=== PATIENT | female | born 1930 | race Caucasian/White ===

== ENCOUNTER → 2016-07-26 | Outpatient (CLI) | payer MEDICARE, OTHER ==
[~2016-07-26] VITALS: Ht 154.9 cm; Wt 56.0 kg
[~2016-07-26] MED LIST: AMLO-512 PO; APIX2.5T PO; ATOR20TA86 PO; CLAR250T3 PO; DICY20 PO; DIGO125T PO; ESOM20CA31 PO; ESOM40CA54 PO; FEXO-58 PO; LOSA-30 PO; LOSA1TAB37 PO; LOSA1TAB40 PO; MECL-111 PO; PANT40TA25 PO; VITAD1000 PO
[2016-07-26 09:52] VITALS: BP 115/69
== END | disposition home or self-care (01) ==
LOC: SRCNTR 09:48
PROVIDERS: ATTEND Internal Medicine Cardiovascular Disease
DX: J44.9 Chronic obstructive pulmonary disease, unspecified (principal); I10 Essential (primary) hypertension; E78.5 Hyperlipidemia, unspecified; I48.2 Chronic atrial fibrillation
CPT/HCPCS: G0463

== ENCOUNTER → 2016-08-05 | Outpatient (CLI) | payer MEDICARE, OTHER ==
[~2016-08-05] VITALS: Ht 157.5 cm; Wt 56.5 kg
[~2016-08-05] MED LIST changes: -CLAR250T3 PO; -ESOM20CA31 PO
[2016-08-05 14:00] VITALS: BP 140/79
== END | disposition home or self-care (01) ==
LOC: SRCNTR 12:34
PROVIDERS: ATTEND Internal Medicine Critical Care Medicine
DX: J44.9 Chronic obstructive pulmonary disease, unspecified (principal); C34.90 Malignant neoplasm of unspecified part of unspecified bronchus or lung; E78.2 Mixed hyperlipidemia; I10 Essential (primary) hypertension; G47.33 Obstructive sleep apnea (adult) (pediatric)
CPT/HCPCS: G0463

== ENCOUNTER → 2016-08-09 | Outpatient (CLI) | payer MEDICARE, OTHER | END | disposition home or self-care (01) | LOC: RADMN 13:01 | PROVIDERS: ATTEND Internal Medicine Critical Care Medicine | DX: J42 Unspecified chronic bronchitis (principal); J43.2 Centrilobular emphysema; I25.10 Atherosclerotic heart disease of native coronary artery without angina pectoris; I70.0 Atherosclerosis of aorta; I51.7 Cardiomegaly; I28.8 Other diseases of pulmonary vessels; Z90.2 Acquired absence of lung [part of] | CPT/HCPCS: 71250 ==

== ENCOUNTER 2016-08-30 15:00 | Emergency (ER) | payer MEDICARE, OTHER ==
[~2016-08-30] VITALS: Ht 157.5 cm; Wt 61.4 kg
[~2016-08-30 15:00] MED LIST changes: -ESOM40CA54 PO; -FEXO-58 PO; -LOSA-30 PO; -LOSA1TAB37 PO
[2016-08-30 15:53] LABS: EOSINOPHILS % (AUTO) 1.8 % (1.0-6.0); HEMATOCRIT 41.5 % (36-46); HEMOGLOBIN 13.4 g/dL (12.0-16.0); LYMPHOCYTES # (AUTO) 1.8 K/uL (1.0-4.8); LYMPHOCYTES % (AUTO) 20.1 % (22.0-44.0); MEAN CORPUSCULAR HEMOGLOBIN 29.8 pg (26.0-34.0); MEAN CORPUSCULAR HGB CONC 32.2 G/dL (31.0-37.0); MEAN CORPUSCULAR VOLUME 92 fL (80-100); MONOCYTES # (AUTO) 0.8 K/uL (0.1-1.0); MONOCYTES % (AUTO) 8.7 % (2.0-9.0); NEUTROPHILS # (AUTO) 6.1 K/uL (1.8-7.7); NEUTROPHILS % (AUTO) 68.4 % (40.0-70.0); PLATELET COUNT (AUTO) 219 K/uL (150-450); RED CELL DISTRIBUTION WIDTH 13.5 % (11.5-14.5)
[2016-08-30 16:01] LABS: ANION GAP 1 mmol/L (8-16); CALCIUM, TOTAL 8.9 mg/dL (8.8-10.5); CARBON DIOXIDE 35 mmol/L (22-29); CHLORIDE 102 mmol/L (98-107); CREATININE 0.67 mg/dL (0.60-1.30); GLOMERULAR FILTR. RATE CALC > 60 mL/min (>60); POTASSIUM 3.7 mmol/L (3.5-5.1); SODIUM SERUM 138 mmol/L (136-145); UREA NITROGEN, BLOOD 23 mg/dL (7-18)
[2016-08-30 16:13] LABS: APPEARANCE,URINE CLEAR (CLEAR); GLUCOSE, URINE (UA) NEGATIVE (NEGATIVE); KETONES,URINE NEGATIVE (NEGATIVE); LEUKOCYTE ESTERASE ,URINE NEGATIVE (NEGATIVE); OCCULT BLOOD,URINE TRACE (NEGATIVE); PROTEIN,URINE NEGATIVE (NEGATIVE)
[2016-08-30 16:14] LABS: ADD UA MICROSCOPIC YES
[2016-08-30 16:22] LABS: B-TYPE NATRIURETIC PEPTIDE 173 pg/mL (0-100)
[2016-08-30 16:26] LABS: ALANINE AMINOTRANSFERASE 25 U/L (12-78); ALBUMIN 3.7 g/dL (3.4-5.0); ASPARTATE AMINOTRANSFERASE 21 U/L (15-37); BILIRUBIN,TOTAL 0.4 mg/dL (0.1-1.0); CREATINE KINASE MB 1.5 ng/mL (0-5); CREATINE KINASE, TOTAL 155 U/L (26-192); DIGOXIN 0.68 ng/mL (0.90-2.00); TOTAL PROTEIN, SERUM 7.2 g/dL (6.4-8.2)
[2016-08-30 16:29] LABS: SQUAMOUS EPITHELIAL CELL,UR Rare /LPF (None Seen)
[2016-08-30 16:30] LABS: RBC,URINE 0-2 /HPF (0-2); WBC,URINE 0-2 /HPF (0-5)
[2016-08-30 16:39] LABS: INR 1.1 (0.9-1.1); PROTHROMBIN TIME 11.5 SEC (9.4-11.6)
[2016-08-30 17:35] VITALS: BP 155/70
[2016-09-01] MEDS ORDERED: LOSA1TAB37 PO (11:14)
[2016-11-01] MEDS ORDERED: ESOM40CA54 PO (10:41)
[2016-11-01] MEDS ORDERED: FEXO-58 PO (10:41)
[2016-11-01] MEDS ORDERED: LOSA-30 PO (10:41)
== END 2016-08-30 18:27 | disposition home or self-care (01) ==
LOC: EMS 15:01
DX: I48.91 Unspecified atrial fibrillation (principal); J44.9 Chronic obstructive pulmonary disease, unspecified; E78.00 Pure hypercholesterolemia, unspecified; I10 Essential (primary) hypertension; Z87.891 Personal history of nicotine dependence; Z88.6 Allergy status to analgesic agent; Z88.5 Allergy status to narcotic agent; Z88.0 Allergy status to penicillin; Z88.8 Allergy status to other drugs, medicaments and biological substances
CPT/HCPCS: 93005; 99285

== ENCOUNTER → 2016-09-01 | Outpatient (CLI) | payer MEDICARE, OTHER ==
[~2016-09-01] VITALS: Ht 157.5 cm; Wt 57.0 kg
[~2016-09-01] MED LIST changes: +ESOM40CA54 PO; +FEXO-58 PO; +LOSA-30 PO; +LOSA1TAB37 PO
[2016-09-01 11:11] VITALS: BP 123/47
== END | disposition home or self-care (01) ==
LOC: SRCNTR 10:31
PROVIDERS: ATTEND Internal Medicine Cardiovascular Disease
DX: J44.9 Chronic obstructive pulmonary disease, unspecified (principal); I10 Essential (primary) hypertension; I48.2 Chronic atrial fibrillation; E78.5 Hyperlipidemia, unspecified
CPT/HCPCS: G0463

== ENCOUNTER → 2016-09-06 | Outpatient (CLI) | payer MEDICARE, OTHER ==
[~2016-09-06] VITALS: Ht 157.5 cm; Wt 57.0 kg
[~2016-09-06] MED LIST changes: -LOSA1TAB40 PO
[2016-09-06 12:53] VITALS: BP 108/64
== END | disposition home or self-care (01) ==
LOC: SRCNTR 12:33
PROVIDERS: ATTEND Internal Medicine Critical Care Medicine
DX: I10 Essential (primary) hypertension (principal); J44.9 Chronic obstructive pulmonary disease, unspecified; G47.33 Obstructive sleep apnea (adult) (pediatric); C34.90 Malignant neoplasm of unspecified part of unspecified bronchus or lung; E78.2 Mixed hyperlipidemia
CPT/HCPCS: G0463

== ENCOUNTER → 2016-09-13 | Outpatient (CLI) | payer MEDICARE, OTHER | END | disposition home or self-care (01) | LOC: RADPV 07:25 | PROVIDERS: ATTEND Internal Medicine Cardiovascular Disease | DX: I50.1 Left ventricular failure, unspecified (principal); I51.7 Cardiomegaly; I48.91 Unspecified atrial fibrillation; I35.8 Other nonrheumatic aortic valve disorders; I35.1 Nonrheumatic aortic (valve) insufficiency; I70.8 Atherosclerosis of other arteries; I07.1 Rheumatic tricuspid insufficiency; I27.2 Other secondary pulmonary hypertension; I37.1 Nonrheumatic pulmonary valve insufficiency | CPT/HCPCS: 93306 ==

== ENCOUNTER → 2016-11-01 | Outpatient (CLI) | payer MEDICARE, OTHER ==
[~2016-11-01] VITALS: Ht 157.5 cm; Wt 57.6 kg
[2016-11-01 10:30] VITALS: BP 121/74
== END | disposition home or self-care (01) ==
LOC: SRCNTR 10:15
PROVIDERS: ATTEND Internal Medicine Cardiovascular Disease
DX: J44.9 Chronic obstructive pulmonary disease, unspecified (principal); I10 Essential (primary) hypertension; I48.2 Chronic atrial fibrillation; E78.5 Hyperlipidemia, unspecified; R10.13 Epigastric pain; B96.81 Helicobacter pylori [H. pylori] as the cause of diseases classified elsewhere
CPT/HCPCS: G0463

== ENCOUNTER → 2016-11-15 | Outpatient (CLI) | payer MEDICARE, OTHER ==
[~2016-11-15] VITALS: Ht 157.5 cm; Wt 57.4 kg
[~2016-11-15] MED LIST changes: -LOSA1TAB37 PO; -MECL-111 PO; -PANT40TA25 PO
[2016-11-15 10:50] VITALS: BP 132/65
== END | disposition home or self-care (01) ==
LOC: SRCNTR 10:20
PROVIDERS: ATTEND Internal Medicine Critical Care Medicine
DX: J44.9 Chronic obstructive pulmonary disease, unspecified (principal); I10 Essential (primary) hypertension; G47.33 Obstructive sleep apnea (adult) (pediatric); C34.90 Malignant neoplasm of unspecified part of unspecified bronchus or lung; E78.2 Mixed hyperlipidemia; Z90.2 Acquired absence of lung [part of]; Z87.891 Personal history of nicotine dependence; Z85.118 Personal history of other malignant neoplasm of bronchus and lung
CPT/HCPCS: G0463

== ENCOUNTER → 2016-11-29 | Outpatient (CLI) | payer MEDICARE, OTHER | END | disposition home or self-care (01) | LOC: RADMN 09:27 | PROVIDERS: ATTEND Internal Medicine Critical Care Medicine | DX: J43.2 Centrilobular emphysema (principal); J42 Unspecified chronic bronchitis; I70.0 Atherosclerosis of aorta; I25.10 Atherosclerotic heart disease of native coronary artery without angina pectoris; R91.8 Other nonspecific abnormal finding of lung field; I51.7 Cardiomegaly; I77.89 Other specified disorders of arteries and arterioles; Z90.2 Acquired absence of lung [part of] | CPT/HCPCS: 71250 ==

== ENCOUNTER → 2016-12-22 | Outpatient (CLI) | payer MEDICARE, OTHER ==
[~2016-12-22] VITALS: Ht 157.5 cm; Wt 57.0 kg
[2016-12-22 11:11] VITALS: BP 118/74
== END | disposition home or self-care (01) ==
LOC: SRCNTR 10:50
PROVIDERS: ATTEND Internal Medicine Critical Care Medicine
DX: J44.9 Chronic obstructive pulmonary disease, unspecified (principal); G47.33 Obstructive sleep apnea (adult) (pediatric); E78.2 Mixed hyperlipidemia; I10 Essential (primary) hypertension; C34.90 Malignant neoplasm of unspecified part of unspecified bronchus or lung; Z87.891 Personal history of nicotine dependence
CPT/HCPCS: G0463

== ENCOUNTER → 2016-12-31 | Outpatient (CLI) | payer MEDICARE, OTHER ==
[~2016-12-31] VITALS: Ht 157.5 cm; Wt 58.2 kg
[~2016-12-31] MED LIST changes: +ALEN70TA48 PO; +ALPR0.255 PO; +AMIO200 PO; +AMLO-511 PO; +ASPI-1093 PO; +ASPI-825 PO; +ATOR10TA84 PO; +ATOR40TA28 PO; +CALC1TAB15 PO; +CITA10TA68 PO; +CLAR250T3 PO; +DSS100 PO; +ESOM20CA31 PO; +FERR-89 PO; +FERR324T4 PO; +FEXO-117 PO; +HYDR25TA PO; +LEVO500 PO; +LISI-660 PO; +LISI10TA PO; +LORA10TA7 PO; +LORA1TAB3 PO; +LOSA1TAB37 PO; +LOSA1TAB40 PO; +MECL-111 PO; +MULT-1203; +NIAC500T76 PO; +PANT40TA25 PO; +PERCT PO; +RIVA20TA PO; +SIMV-260 PO; +SOLI5 PO; +TEMA7.5C17 PO; +VENL37.589 PO; +VICOT PO; +ZOLP5 PO; +[UNRECOGNIZED DRUG - CODE] PO
[2016-12-31 09:53] VITALS: BP 119/55
== END | disposition home or self-care (01) ==
LOC: SRCNTR 09:50
PROVIDERS: ATTEND Internal Medicine Cardiovascular Disease
DX: I10 Essential (primary) hypertension (principal); E78.5 Hyperlipidemia, unspecified; I48.2 Chronic atrial fibrillation; J44.9 Chronic obstructive pulmonary disease, unspecified; Z79.01 Long term (current) use of anticoagulants; Z88.0 Allergy status to penicillin
CPT/HCPCS: G0463

== ENCOUNTER 2017-01-31 17:20 | Inpatient (IN) | payer MEDICARE, OTHER ==
[~2017-01-31] VITALS: Ht 157.5 cm; Wt 63.5 kg
[~2017-01-31 17:20] MED LIST changes: -ALEN70TA48 PO; -ALPR0.255 PO; -AMIO200 PO; -AMLO-511 PO; -ASPI-1093 PO; -ASPI-825 PO; -ATOR10TA84 PO; -ATOR40TA28 PO; -CALC1TAB15 PO; -CITA10TA68 PO; -CLAR250T3 PO; -DSS100 PO; -ESOM20CA31 PO; -FERR-89 PO; -FERR324T4 PO; -FEXO-117 PO; -HYDR25TA PO; -LEVO500 PO; -LISI-660 PO; -LISI10TA PO; -LORA10TA7 PO; -LORA1TAB3 PO; -LOSA1TAB37 PO; -LOSA1TAB40 PO; -MECL-111 PO; -MULT-1203; -NIAC500T76 PO; -PANT40TA25 PO; -PERCT PO; -RIVA20TA PO; -SIMV-260 PO; -SOLI5 PO; -TEMA7.5C17 PO; -VENL37.589 PO; -VICOT PO; -ZOLP5 PO; -[UNRECOGNIZED DRUG - CODE] PO
[2017-01-31 18:14] LABS: BASOPHILS % (AUTO) 0.6 % (0.0-2.0); EOSINOPHILS % (AUTO) 0.8 % (1.0-6.0); HEMATOCRIT 40.4 % (36-46); HEMOGLOBIN 13.5 g/dL (12.0-16.0); LYMPHOCYTES # (AUTO) 1.3 K/uL (1.0-4.8); LYMPHOCYTES % (AUTO) 12.8 % (22.0-44.0); MEAN CORPUSCULAR HEMOGLOBIN 29.8 pg (26.0-34.0); MEAN CORPUSCULAR HGB CONC 33.4 G/dL (31.0-37.0); MEAN CORPUSCULAR VOLUME 89 fL (80-100); MONOCYTES # (AUTO) 0.8 K/uL (0.1-1.0); MONOCYTES % (AUTO) 7.6 % (2.0-9.0); NEUTROPHILS # (AUTO) 8.1 K/uL (1.8-7.7); NEUTROPHILS % (AUTO) 78.2 % (40.0-70.0); PLATELET COUNT (AUTO) 214 K/uL (150-450); RED BLOOD CELL COUNT(AUTO) 4.52 MIL/uL (4.00-5.20); RED CELL DISTRIBUTION WIDTH 13.4 % (11.5-14.5); WHITE BLOOD COUNT (AUTO) 10.4 K/uL (4.5-11.0)
[2017-01-31 18:30] LABS: ANION GAP 7 mmol/L (8-16); CALCIUM, TOTAL 9.4 mg/dL (8.8-10.5); CARBON DIOXIDE 33 mmol/L (22-29); CHLORIDE 100 mmol/L (98-107); CREATININE 0.85 mg/dL (0.60-1.30); GLOMERULAR FILTR. RATE CALC > 60 mL/min (>60); POTASSIUM 3.8 mmol/L (3.5-5.1); SODIUM SERUM 140 mmol/L (136-145); UREA NITROGEN, BLOOD 17 mg/dL (7-18)
[2017-01-31 18:34] LABS: ALANINE AMINOTRANSFERASE 54 U/L (12-78); ALBUMIN 4.1 g/dL (3.4-5.0); ASPARTATE AMINOTRANSFERASE 59 U/L (15-37); BILIRUBIN,TOTAL 0.6 mg/dL (0.1-1.0); TOTAL PROTEIN, SERUM 7.8 g/dL (6.4-8.2)
[2017-01-31 19:53] LABS: PROTHROMBIN TIME 10.9 SEC (9.4-11.6)
[2017-01-31 20:05] LABS: APPEARANCE,URINE CLEAR (CLEAR); GLUCOSE, URINE (UA) NEGATIVE (NEGATIVE); KETONES,URINE NEGATIVE (NEGATIVE); LEUKOCYTE ESTERASE ,URINE NEGATIVE (NEGATIVE); OCCULT BLOOD,URINE NEGATIVE (NEGATIVE); PH,URINE 6.5 (5.0-8.0); PROTEIN,URINE NEGATIVE (NEGATIVE)
[2017-01-31 20:06] LABS: ADD UA MICROSCOPIC NO
[2017-01-31] MEDS ORDERED: HYDROmorphone 2 MG/ML SYRINGE IVP ONE (20:30)
[2017-01-31] MEDS ORDERED: KETOROLAC TROMETHAMINE 30 MG/ML VIAL IVP ONE (20:30)
[2017-01-31] MEDS ORDERED: ONDANSETRON HCL 4 MG/2 ML VIAL IVP ONE (20:30)
[2017-01-31] MEDS ORDERED: SODIUM CHLORIDE 0.9% 1,000 ML IV ONE (20:30)
[2017-02-01 04:31] LABS: BASOPHILS # (AUTO) 0.02 K/uL (0.00-0.20); BASOPHILS % (AUTO) 0.2 % (0.0-2.0); EOSINOPHILS % (AUTO) 1.11 % (1.0-6.0); HEMATOCRIT 39.4 % (36-46); HEMOGLOBIN 12.8 g/dL (12.0-16.0); LYMPHOCYTES # (AUTO) 1.1 K/uL (1.0-4.8); LYMPHOCYTES % (AUTO) 12.1 % (22.0-44.0); MEAN CORPUSCULAR HGB CONC 32.4 G/dL (31.0-37.0); MEAN CORPUSCULAR VOLUME 92 fL (80-100); MONOCYTES # (AUTO) 0.7 K/uL (0.1-1.0); MONOCYTES % (AUTO) 7.7 % (2.0-9.0); NEUTROPHILS # (AUTO) 6.9 K/uL (1.8-7.7); NEUTROPHILS % (AUTO) 78.9 % (40.0-70.0); PLATELET COUNT (AUTO) 187 K/uL (150-450); RED BLOOD CELL COUNT(AUTO) 4.26 MIL/uL (4.00-5.20); RED CELL DISTRIBUTION WIDTH 13.3 % (11.5-14.5); WHITE BLOOD COUNT (AUTO) 8.8 K/uL (4.5-11.0)
[2017-02-01 04:40] LABS: ANION GAP 6 mmol/L (8-16); CALCIUM, TOTAL 9.2 mg/dL (8.8-10.5); CARBON DIOXIDE 33 mmol/L (22-29); CHLORIDE 103 mmol/L (98-107); CREATININE 0.71 mg/dL (0.60-1.30); GLOMERULAR FILTR. RATE CALC > 60 mL/min (>60); POTASSIUM 3.9 mmol/L (3.5-5.1); SODIUM SERUM 142 mmol/L (136-145); UREA NITROGEN, BLOOD 11 mg/dL (7-18)
[2017-02-01 04:47] LABS: ALANINE AMINOTRANSFERASE 89 U/L (12-78); ALBUMIN 3.5 g/dL (3.4-5.0); ASPARTATE AMINOTRANSFERASE 76 U/L (15-37); BILIRUBIN,TOTAL 0.7 mg/dL (0.1-1.0); TOTAL PROTEIN, SERUM 6.9 g/dL (6.4-8.2)
[2017-02-01] MEDS ORDERED: LEVOFLOXACIN 500 MG/D5% WATER 100 ML IV ONE (07:15)
[2017-02-01] MEDS ORDERED: MetroNIDAZOLE 500 MG/NACL 100 ML IV ONE (07:15)
[2017-02-01] MEDS ORDERED: GADOBUTROL 1 MMOL/ML 10 ML VIAL IVP ONE (07:57)
[2017-02-01] MEDS: MetroNIDAZOLE 500 MG/NACL 100 ML IV SCH ×2 (13:38→20:36)
[2017-02-01] MEDS ORDERED: SODIUM CHLORIDE 0.9% 100 ML ONE (14:02)
[2017-02-01 14:06] LABS: DIGOXIN 0.74 ng/mL (0.90-2.00)
[2017-02-01 14:30] VITALS: BP 145/76
[2017-02-01 16:38] VITALS: BP 135/73
[2017-02-01 19:40] VITALS: BP 120/68
[2017-02-01] MEDS: DOCUSATE SODIUM 100 MG CAPSULE PO SCH (20:33)
[2017-02-01 23:45] VITALS: BP 137/64
[2017-02-02 03:59] VITALS: BP 142/65
[2017-02-02] MEDS: MetroNIDAZOLE 500 MG/NACL 100 ML IV SCH ×3 (05:32→20:40)
[2017-02-02] MEDS: LEVOFLOXACIN 500 MG/D5% WATER 100 ML IV SCH (06:36)
[2017-02-02 07:05] VITALS: BP 122/43
[2017-02-02] MEDS: DOCUSATE SODIUM 100 MG CAPSULE PO SCH ×2 (08:20→20:39)
[2017-02-02] MEDS: PANTOPRAZOLE SODIUM 40 MG DR TABLET PO SCH (08:20)
[2017-02-02] MEDS ORDERED: DIGOXIN 125 MCG TABLET PO SCH (09:00)
[2017-02-02 11:26] VITALS: BP 127/63
[2017-02-02 15:37] VITALS: BP 135/62
[2017-02-02] MEDS ORDERED: POLYETHYLENE GLYCOL 3350 17 GM PACKET PO ONE (16:15)
[2017-02-02 19:18] VITALS: BP 146/80
[2017-02-02] MEDS ORDERED: SODIUM CHLORIDE 0.9% 100 ML ONE (20:44)
[2017-02-02 23:56] VITALS: BP 143/72
[2017-02-03] MEDS ORDERED: LIDOCAINE HCL/PF 2% 5 ML VIAL IM ONE (00:17)
[2017-02-03] MEDS ORDERED: FentaNYL CITRATE-PF 100 MCG/2 ML VIAL IVP ONE (00:17)
[2017-02-03] MEDS ORDERED: ROCURONIUM BROMIDE 10 MG/ML 5 ML VIAL IVP ONE (00:17)
[2017-02-03] MEDS ORDERED: DEXAMETHASONE SOD PHOS 4 MG/ML VIAL IVP ONE (00:17)
[2017-02-03] MEDS ORDERED: EPHEDrine SULFATE 50 MG/ML VIAL IM ONE (00:17)
[2017-02-03] MEDS ORDERED: GLYCOPYRROLATE 0.2 MG/ML VIAL IM ONE (00:17)
[2017-02-03] MEDS ORDERED: NEOSTIGMINE METHYLSULFATE 1 MG/ML 10 ML VIAL IVP ONE (00:17)
[2017-02-03] MEDS ORDERED: PROPOFOL 1% 20 ML VIAL IVP ONE (00:17)
[2017-02-03] MEDS ORDERED: SUCCINYLCHOLINE CHLORIDE 20 MG/ML 10 ML VIAL IVP ONE (00:17)
[2017-02-03] MEDS ORDERED: 0.9% SODIUM CHLORIDE 10 ML VIAL IVP ONE (00:17)
[2017-02-03 04:38] VITALS: BP 137/67
[2017-02-03] MEDS: MetroNIDAZOLE 500 MG/NACL 100 ML IV SCH ×3 (05:05→20:23)
[2017-02-03] MEDS: LEVOFLOXACIN 500 MG/D5% WATER 100 ML IV SCH (06:31)
[2017-02-03 07:39] VITALS: BP 147/85
[2017-02-03] MEDS: PANTOPRAZOLE SODIUM 40 MG DR TABLET PO SCH (08:31)
[2017-02-03] MEDS: DOCUSATE SODIUM 100 MG CAPSULE PO SCH ×2 (08:31→20:23)
[2017-02-03] MEDS ORDERED: RINGERS SOLUTION,LACTATED 1,000 ML IV ONE ×2 (11:20→12:00)
[2017-02-03 11:31] VITALS: BP 150/68
[2017-02-03] MEDS ORDERED: SODIUM CHLORIDE 0.9% 1,000 ML IV ONE (12:00)
[2017-02-03] MEDS ORDERED: IOHEXOL 240 MG/ML 20 ML VIAL ONE (12:25)
[2017-02-03] MEDS ORDERED: SODIUM CL IRRIG SOLN BAG 3,000 ML IRRIG ONE (12:26)
[2017-02-03] MEDS ORDERED: FentaNYL CITRATE-PF 100 MCG/2 ML VIAL IVP PRN (12:45)
[2017-02-03] MEDS ORDERED: MEPERIDINE-PF 25 MG/ML SYRINGE IVP PRN (12:45)
[2017-02-03] MEDS: BUPIVACAINE 0.25%/EPI 1:200,000/PF 10 ML VIAL ONE ×2 (13:00→13:29)
[2017-02-03] MEDS ORDERED: HYDROmorphone 2 MG/ML SYRINGE ONE (14:23)
[2017-02-03] MEDS ORDERED: MEPERIDINE-PF 25 MG/ML SYRINGE ONE (14:23)
[2017-02-03] MEDS: HYDROmorphone 2 MG/ML SYRINGE IVP PRN ×2 (14:23→14:33)
[2017-02-03] MEDS ORDERED: ONDANSETRON HCL 4 MG/2 ML VIAL IVP STA (14:31)
[2017-02-03] MEDS ORDERED: ONDANSETRON HCL 4 MG/2 ML VIAL ONE (14:32)
[2017-02-03 15:34] VITALS: BP 156/93
[2017-02-03] MEDS: ONDANSETRON HCL 4 MG/2 ML VIAL IVP PRN (18:02)
[2017-02-03 20:08] VITALS: BP 142/84
[2017-02-03] MEDS: HYDROCODONE/ACETAMINOPHEN 5-325 MG TABLET PO PRN (20:23)
[2017-02-03] MEDS: OXYGEN THERAPY IH SCH (20:24)
[2017-02-03] MEDS: ACETAMINOPHEN 325 MG TABLET PO PRN (22:04)
[2017-02-04] VITALS (7 sets, daily range): BP systolic 111–163; BP diastolic 58–94
[2017-02-04] MEDS: HYDROCODONE/ACETAMINOPHEN 5-325 MG TABLET PO PRN ×3 (02:04→19:44)
[2017-02-04] MEDS: ONDANSETRON HCL 4 MG/2 ML VIAL IVP PRN (03:53)
[2017-02-04] MEDS: MetroNIDAZOLE 500 MG/NACL 100 ML IV SCH ×3 (05:41→20:38)
[2017-02-04 06:04] LABS: BASOPHILS % (AUTO) 0.2 % (0.0-2.0); EOSINOPHILS % (AUTO) 0 % (1.0-6.0); HEMOGLOBIN 14.2 g/dL (12.0-16.0); LYMPHOCYTES # (AUTO) 0.5 K/uL (1.0-4.8); LYMPHOCYTES % (AUTO) 2.3 % (22.0-44.0); MEAN CORPUSCULAR VOLUME 91 fL (80-100); MONOCYTES # (AUTO) 1.3 K/uL (0.1-1.0); NEUTROPHILS # (AUTO) 19.5 K/uL (1.8-7.7); PLATELET COUNT (AUTO) 241 K/uL (150-450); RED BLOOD CELL COUNT(AUTO) 4.73 MIL/uL (4.00-5.20); WHITE BLOOD COUNT (AUTO) 21.3 K/uL (4.5-11.0)
[2017-02-04 06:22] LABS: BILIRUBIN,TOTAL 0.8 mg/dL (0.1-1.0); CALCIUM, TOTAL 9.8 mg/dL (8.8-10.5); CREATININE 1.04 mg/dL (0.60-1.30); POTASSIUM 4.3 mmol/L (3.5-5.1); TOTAL PROTEIN, SERUM 7.9 g/dL (6.4-8.2)
[2017-02-04 06:45] LABS: NEUTROPHILS % (AUTO) 91.5 % (40.0-70.0); RBC MORPHOLOGY COMMENT NORMAL RBC MORPH
[2017-02-04] MEDS: PANTOPRAZOLE SODIUM 40 MG DR TABLET PO SCH (07:36)
[2017-02-04] MEDS: LEVOFLOXACIN 500 MG/D5% WATER 100 ML IV SCH (07:36)
[2017-02-04] MEDS: DOCUSATE SODIUM 100 MG CAPSULE PO SCH ×2 (07:36→20:28)
[2017-02-04] MEDS: HYDROmorphone 2 MG/ML SYRINGE IVP PRN (07:37)
[2017-02-04] MEDS: OXYGEN THERAPY IH SCH ×2 (07:38→19:46)
[2017-02-04] MEDS: AmLODIPine BESYLATE 5 MG TABLET PO SCH ×2 (14:23→20:38)
[2017-02-05] MEDS: MetroNIDAZOLE 500 MG/NACL 100 ML IV SCH ×3 (05:07→22:06)
[2017-02-05] MEDS: MAGNESIUM HYDROXIDE SUSPENSION 30 ML UDCUP PO PRN ×2 (05:08→22:06)
[2017-02-05 05:19] VITALS: BP 155/89
[2017-02-05 07:28] LABS: BASOPHILS % (AUTO) 0.4 % (0.0-2.0); EOSINOPHILS # (AUTO) 0.01 K/uL (0.00-0.70); EOSINOPHILS % (AUTO) 0.04 % (1.0-6.0); HEMATOCRIT 43.3 % (36-46); LYMPHOCYTES # (AUTO) 0.7 K/uL (1.0-4.8); LYMPHOCYTES % (AUTO) 2.8 % (22.0-44.0); MEAN CORPUSCULAR HEMOGLOBIN 29.8 pg (26.0-34.0); MEAN CORPUSCULAR HGB CONC 32.3 G/dL (31.0-37.0); MEAN CORPUSCULAR VOLUME 92 fL (80-100); MONOCYTES # (AUTO) 0.7 K/uL (0.1-1.0); NEUTROPHILS # (AUTO) 22.9 K/uL (1.8-7.7); PLATELET COUNT (AUTO) 217 K/uL (150-450); RED CELL DISTRIBUTION WIDTH 13.6 % (11.5-14.5); WHITE BLOOD COUNT (AUTO) 24.4 K/uL (4.5-11.0)
[2017-02-05 07:29] VITALS: BP 137/77
[2017-02-05 07:38] LABS: NEUTROPHILS % (AUTO) 93.8 % (40.0-70.0)
[2017-02-05] MEDS: LEVOFLOXACIN 500 MG/D5% WATER 100 ML IV SCH (07:57)
[2017-02-05 07:59] LABS: ALANINE AMINOTRANSFERASE 54 U/L (12-78); ALBUMIN 3.4 g/dL (3.4-5.0); ANION GAP 10 mmol/L (8-16); ASPARTATE AMINOTRANSFERASE 40 U/L (15-37); BILIRUBIN,TOTAL 1.5 mg/dL (0.1-1.0); CALCIUM, TOTAL 9.5 mg/dL (8.8-10.5); CARBON DIOXIDE 26 mmol/L (22-29); CHLORIDE 99 mmol/L (98-107); CREATININE 0.71 mg/dL (0.60-1.30); GLOMERULAR FILTR. RATE CALC > 60 mL/min (>60); POTASSIUM 3.9 mmol/L (3.5-5.1); SODIUM SERUM 135 mmol/L (136-145); TOTAL PROTEIN, SERUM 7.1 g/dL (6.4-8.2); UREA NITROGEN, BLOOD 18 mg/dL (7-18)
[2017-02-05] MEDS: OXYGEN THERAPY IH SCH ×2 (08:00→20:20)
[2017-02-05] MEDS: AmLODIPine BESYLATE 5 MG TABLET PO SCH (08:18)
[2017-02-05] MEDS: PANTOPRAZOLE SODIUM 40 MG DR TABLET PO SCH (08:18)
[2017-02-05] MEDS: DOCUSATE SODIUM 100 MG CAPSULE PO SCH ×2 (08:19→20:16)
[2017-02-05] MEDS: APIXABAN 2.5 MG TABLET PO SCH ×2 (09:25→20:16)
[2017-02-05] MEDS: SODIUM PHOS/SODIUM BIPHOS 133 ML ENEMA PR PRN (10:32)
[2017-02-05 12:04] VITALS: BP 127/70
[2017-02-05 16:28] VITALS: BP 140/96
[2017-02-05] MEDS ORDERED: MAGNESIUM CITRATE 300 ML ORAL SOLUTION PO PRN (16:45)
[2017-02-05 19:44] VITALS: BP 143/89
[2017-02-05] MEDS: ACETAMINOPHEN 325 MG TABLET PO PRN (20:17)
[2017-02-05] MEDS ORDERED: AmLODIPine BESYLATE 10 MG TABLET PO SCH (21:00)
[2017-02-05 23:52] VITALS: BP 139/81
[2017-02-06] MEDS: HYDROmorphone 2 MG/ML SYRINGE IVP PRN (01:03)
[2017-02-06] MEDS: MetroNIDAZOLE 500 MG/NACL 100 ML IV SCH ×3 (04:24→20:30)
[2017-02-06 05:24] VITALS: BP 158/78
[2017-02-06] MEDS: LEVOFLOXACIN 500 MG/D5% WATER 100 ML IV SCH (06:48)
[2017-02-06 07:08] LABS: BASOPHILS % (AUTO) 0.1 % (0.0-2.0); EOSINOPHILS % (AUTO) 0 % (1.0-6.0); HEMOGLOBIN 14.4 g/dL (12.0-16.0); LYMPHOCYTES # (AUTO) 0.8 K/uL (1.0-4.8); LYMPHOCYTES % (AUTO) 3.3 % (22.0-44.0); MEAN CORPUSCULAR HEMOGLOBIN 30.1 pg (26.0-34.0); MEAN CORPUSCULAR HGB CONC 33.5 G/dL (31.0-37.0); MEAN CORPUSCULAR VOLUME 90 fL (80-100); MONOCYTES # (AUTO) 0.8 K/uL (0.1-1.0); MONOCYTES % (AUTO) 3.4 % (2.0-9.0); PLATELET COUNT (AUTO) 239 K/uL (150-450); RED BLOOD CELL COUNT(AUTO) 4.78 MIL/uL (4.00-5.20); RED CELL DISTRIBUTION WIDTH 13.9 % (11.5-14.5); WHITE BLOOD COUNT (AUTO) 23.6 K/uL (4.5-11.0)
[2017-02-06 07:10] LABS: NEUTROPHILS % (AUTO) 93.2 % (40.0-70.0)
[2017-02-06 07:25] VITALS: BP 144/61
[2017-02-06] MEDS ORDERED: BISACODYL 10 MG RECTAL RECTAL SUPPOSITORY PR PRN (07:30)
[2017-02-06 07:32] LABS: ALANINE AMINOTRANSFERASE 40 U/L (12-78); ALBUMIN 3.2 g/dL (3.4-5.0); ANION GAP 7 mmol/L (8-16); ASPARTATE AMINOTRANSFERASE 24 U/L (15-37); BILIRUBIN,TOTAL 2.1 mg/dL (0.1-1.0); CALCIUM, TOTAL 9.1 mg/dL (8.8-10.5); CARBON DIOXIDE 30 mmol/L (22-29); CHLORIDE 99 mmol/L (98-107); CREATININE 0.78 mg/dL (0.60-1.30); GLOMERULAR FILTR. RATE CALC > 60 mL/min (>60); POTASSIUM 3.8 mmol/L (3.5-5.1); SODIUM SERUM 136 mmol/L (136-145); TOTAL PROTEIN, SERUM 6.8 g/dL (6.4-8.2); UREA NITROGEN, BLOOD 19 mg/dL (7-18)
[2017-02-06] MEDS: PANTOPRAZOLE SODIUM 40 MG DR TABLET PO SCH (07:45)
[2017-02-06] MEDS: DOCUSATE SODIUM 100 MG CAPSULE PO SCH ×2 (07:45→20:28)
[2017-02-06] MEDS: AmLODIPine BESYLATE 10 MG TABLET PO SCH (07:45)
[2017-02-06] MEDS: APIXABAN 2.5 MG TABLET PO SCH (07:45)
[2017-02-06] MEDS: OXYGEN THERAPY IH SCH ×2 (07:49→20:28)
[2017-02-06] MEDS: LACTULOSE 20 GM/30 ML SOLUTION UDCUP PO SCH ×2 (09:59→20:28)
[2017-02-06 11:11] VITALS: BP 137/84
[2017-02-06 15:48] VITALS: BP 133/80
[2017-02-06] MEDS: SODIUM PHOS/SODIUM BIPHOS 133 ML ENEMA PR PRN (17:50)
[2017-02-06 20:12] VITALS: BP 145/85
[2017-02-06 23:56] VITALS: BP 143/86
[2017-02-07] MEDS: MetroNIDAZOLE 500 MG/NACL 100 ML IV SCH ×2 (05:11→13:11)
[2017-02-07 05:14] VITALS: BP 144/81
[2017-02-07 06:25] LABS: HEMATOCRIT 38.3 % (36-46); HEMOGLOBIN 12.4 g/dL (12.0-16.0); MEAN CORPUSCULAR HEMOGLOBIN 29.9 pg (26.0-34.0); MEAN CORPUSCULAR HGB CONC 32.3 G/dL (31.0-37.0); MEAN CORPUSCULAR VOLUME 93 fL (80-100); PLATELET COUNT (AUTO) 203 K/uL (150-450); RED BLOOD CELL COUNT(AUTO) 4.14 MIL/uL (4.00-5.20); RED CELL DISTRIBUTION WIDTH 13.7 % (11.5-14.5)
[2017-02-07] MEDS: LEVOFLOXACIN 500 MG/D5% WATER 100 ML IV SCH (06:50)
[2017-02-07 06:57] LABS: ALANINE AMINOTRANSFERASE 29 U/L (12-78); ALBUMIN 2.7 g/dL (3.4-5.0); ANION GAP 7 mmol/L (8-16); ASPARTATE AMINOTRANSFERASE 16 U/L (15-37); BILIRUBIN,TOTAL 1.4 mg/dL (0.1-1.0); CALCIUM, TOTAL 8.4 mg/dL (8.8-10.5); CARBON DIOXIDE 31 mmol/L (22-29); CHLORIDE 101 mmol/L (98-107); CREATININE 0.64 mg/dL (0.60-1.30); GLOMERULAR FILTR. RATE CALC > 60 mL/min (>60); SODIUM SERUM 139 mmol/L (136-145); TOTAL PROTEIN, SERUM 5.3 g/dL (6.4-8.2); UREA NITROGEN, BLOOD 12 mg/dL (7-18)
[2017-02-07 07:27] VITALS: BP 148/92
[2017-02-07 07:54] LABS: BAND NEUTROPHILS % (MANUAL) 7 % (1-5); LYMPHOCYTES % (MANUAL) 11 % (22-44); RBC MORPHOLOGY COMMENT NORMAL RBC MORPH; TOTAL CELLS COUNTED 100
[2017-02-07] MEDS: OXYGEN THERAPY IH SCH (08:00)
[2017-02-07] MEDS: PANTOPRAZOLE SODIUM 40 MG DR TABLET PO SCH (08:28)
[2017-02-07] MEDS: LACTULOSE 20 GM/30 ML SOLUTION UDCUP PO SCH (08:28)
[2017-02-07] MEDS: DOCUSATE SODIUM 100 MG CAPSULE PO SCH (08:28)
[2017-02-07] MEDS: AmLODIPine BESYLATE 10 MG TABLET PO SCH (08:28)
[2017-02-07 11:23] VITALS: BP 121/67
[2017-02-07 15:27] VITALS: BP 123/71
== END 2017-02-07 16:30 | disposition home or self-care (01) | DRG 418 ==
LOC: EMS 17:22 → 5N 02-01 10:45
PROVIDERS: ADMIT Internal Medicine; ATTEND Internal Medicine
PROC: 0FT44ZZ Resection of Gallbladder, Percutaneous Endoscopic Approach (ICD-10-PCS; principal; 2017-02-03 13:00)
DX: K81.0 Acute cholecystitis (principal); K56.7 Ileus, unspecified; I48.2 Chronic atrial fibrillation; J44.9 Chronic obstructive pulmonary disease, unspecified; N28.1 Cyst of kidney, acquired; I11.9 Hypertensive heart disease without heart failure; N13.2 Hydronephrosis with renal and ureteral calculous obstruction; E55.9 Vitamin D deficiency, unspecified; M19.90 Unspecified osteoarthritis, unspecified site; E78.5 Hyperlipidemia, unspecified; F41.9 Anxiety disorder, unspecified; E78.00 Pure hypercholesterolemia, unspecified; Z90.2 Acquired absence of lung [part of]; Z88.5 Allergy status to narcotic agent; Z88.0 Allergy status to penicillin; Z88.8 Allergy status to other drugs, medicaments and biological substances; Z79.899 Other long term (current) drug therapy; Z79.01 Long term (current) use of anticoagulants; Z87.01 Personal history of pneumonia (recurrent); Z87.891 Personal history of nicotine dependence; Z85.118 Personal history of other malignant neoplasm of bronchus and lung; Z82.49 Family history of ischemic heart disease and other diseases of the circulatory system
CPT/HCPCS: 74000; 74176; 74183; 76700; 83605; 83735; 88304; 93005; 93306; 97161; 97530; 99285; A9585; J0330; J1100; J1170; J1885; J1956; J2175; J2405; J2704; J3010; J3490; J7030; J7050; J7120; Q9966

== ENCOUNTER → 2017-02-17 | Outpatient (CLI) | payer MEDICARE, OTHER ==
[~2017-02-17] VITALS: Ht 157.5 cm; Wt 58.3 kg
[2017-02-17 14:21] VITALS: BP 92/64
== END | disposition home or self-care (01) ==
LOC: SRCNTR 14:18
PROVIDERS: ATTEND Internal Medicine Cardiovascular Disease
DX: J44.9 Chronic obstructive pulmonary disease, unspecified (principal); I10 Essential (primary) hypertension; I48.2 Chronic atrial fibrillation; E78.5 Hyperlipidemia, unspecified; Z79.01 Long term (current) use of anticoagulants; Z88.0 Allergy status to penicillin; Z90.49 Acquired absence of other specified parts of digestive tract
CPT/HCPCS: G0463

== ENCOUNTER → 2017-03-30 | Outpatient (CLI) | payer MEDICARE, OTHER ==
[~2017-03-30] MED LIST changes: -FEXO-58 PO
== END | disposition home or self-care (01) ==
LOC: RADMN 17:01
PROVIDERS: ATTEND Family Medicine
DX: I51.7 Cardiomegaly (principal); J98.01 Acute bronchospasm; I70.0 Atherosclerosis of aorta
CPT/HCPCS: 71020

== ENCOUNTER → 2017-04-11 | Outpatient (CLI) | payer MEDICARE, OTHER ==
[~2017-04-11] VITALS: Ht 157.5 cm; Wt 56.5 kg
[2017-04-11 10:47] VITALS: BP 133/67
== END | disposition home or self-care (01) ==
LOC: SRCNTR 10:20
PROVIDERS: ATTEND Internal Medicine Cardiovascular Disease
DX: J44.9 Chronic obstructive pulmonary disease, unspecified (principal); E78.5 Hyperlipidemia, unspecified; I10 Essential (primary) hypertension; I48.2 Chronic atrial fibrillation; Z79.01 Long term (current) use of anticoagulants; Z88.0 Allergy status to penicillin
CPT/HCPCS: G0463

== ENCOUNTER → 2017-04-15 | Outpatient (CLI) | payer MEDICARE, OTHER | END | disposition home or self-care (01) | LOC: RADPV 07:33 | PROVIDERS: ATTEND Nurse Practitioner | DX: J44.9 Chronic obstructive pulmonary disease, unspecified (principal); R91.8 Other nonspecific abnormal finding of lung field; I51.7 Cardiomegaly; Z90.2 Acquired absence of lung [part of] | CPT/HCPCS: 71020 ==

== ENCOUNTER → 2017-04-21 | Outpatient (CLI) | payer MEDICARE, OTHER ==
[~2017-04-21] VITALS: Ht 157.5 cm; Wt 56.9 kg
[2017-04-21 13:47] VITALS: BP 110/61
== END | disposition home or self-care (01) ==
LOC: SRCNTR 12:51
PROVIDERS: ATTEND Internal Medicine Critical Care Medicine
DX: J44.9 Chronic obstructive pulmonary disease, unspecified (principal); C34.90 Malignant neoplasm of unspecified part of unspecified bronchus or lung; E78.2 Mixed hyperlipidemia; G47.33 Obstructive sleep apnea (adult) (pediatric); I10 Essential (primary) hypertension; Z88.8 Allergy status to other drugs, medicaments and biological substances; Z87.891 Personal history of nicotine dependence
CPT/HCPCS: G0463

== ENCOUNTER → 2017-05-26 | Outpatient (CLI) | payer MEDICARE, OTHER ==
[~2017-05-26] VITALS: Ht 157.5 cm; Wt 58.0 kg
[2017-05-26 12:20] VITALS: BP 128/58
== END | disposition home or self-care (01) ==
LOC: SRCNTR 12:03
PROVIDERS: ATTEND Internal Medicine Critical Care Medicine
DX: G47.33 Obstructive sleep apnea (adult) (pediatric) (principal); J44.0 Chronic obstructive pulmonary disease with (acute) lower respiratory infection; J98.4 Other disorders of lung; I10 Essential (primary) hypertension; I25.10 Atherosclerotic heart disease of native coronary artery without angina pectoris; J18.9 Pneumonia, unspecified organism; E78.2 Mixed hyperlipidemia; T78.3XXA Angioneurotic edema, initial encounter; Z90.2 Acquired absence of lung [part of]; Z88.8 Allergy status to other drugs, medicaments and biological substances; Z88.0 Allergy status to penicillin; Z79.01 Long term (current) use of anticoagulants; Z85.038 Personal history of other malignant neoplasm of large intestine; Z83.3 Family history of diabetes mellitus
CPT/HCPCS: G0463

== ENCOUNTER 2017-06-13 14:53 | Emergency (ER) | payer MEDICARE, OTHER ==
[~2017-06-13] VITALS: Ht 157.5 cm; Wt 59.1 kg
[2017-06-13 16:37] LABS: BASOPHILS % (AUTO) 0.1 % (0.0-2.0); EOSINOPHILS # (AUTO) 0.06 K/uL (0.00-0.70); EOSINOPHILS % (AUTO) 0.79 % (1.0-6.0); HEMATOCRIT 39.6 % (36-46); HEMOGLOBIN 12.9 g/dL (12.0-16.0); LYMPHOCYTES # (AUTO) 1.1 K/uL (1.0-4.8); LYMPHOCYTES % (AUTO) 14.5 % (22.0-44.0); MEAN CORPUSCULAR HEMOGLOBIN 29.4 pg (26.0-34.0); MEAN CORPUSCULAR HGB CONC 32.6 G/dL (31.0-37.0); MEAN CORPUSCULAR VOLUME 90 fL (80-100); MONOCYTES # (AUTO) 0.9 K/uL (0.1-1.0); MONOCYTES % (AUTO) 12.5 % (2.0-9.0); NEUTROPHILS # (AUTO) 5.3 K/uL (1.8-7.7); NEUTROPHILS % (AUTO) 72.2 % (40.0-70.0); PLATELET COUNT (AUTO) 178 K/uL (150-450); RED CELL DISTRIBUTION WIDTH 13.9 % (11.5-14.5); WHITE BLOOD COUNT (AUTO) 7.3 K/uL (4.5-11.0)
[2017-06-13 16:49] LABS: ANION GAP 10 mmol/L (8-16); CALCIUM, TOTAL 8.9 mg/dL (8.8-10.5); CARBON DIOXIDE 31 mmol/L (22-29); CHLORIDE 100 mmol/L (98-107); CREATININE 0.85 mg/dL (0.60-1.30); GLOMERULAR FILTR. RATE CALC > 60 mL/min (>60); POTASSIUM 3.9 mmol/L (3.5-5.1); SODIUM SERUM 141 mmol/L (136-145); UREA NITROGEN, BLOOD 26 mg/dL (7-18)
[2017-06-13 17:00] LABS: B-TYPE NATRIURETIC PEPTIDE 339 pg/mL (0-100)
[2017-06-13 17:14] LABS: ALANINE AMINOTRANSFERASE 137 U/L (12-78); ALBUMIN 3.6 g/dL (3.4-5.0); ASPARTATE AMINOTRANSFERASE 71 U/L (15-37); BILIRUBIN,TOTAL 0.4 mg/dL (0.1-1.0); CREATINE KINASE MB 1.1 ng/mL (0-5); CREATINE KINASE, TOTAL 86 U/L (26-192); TOTAL PROTEIN, SERUM 7.1 g/dL (6.4-8.2)
[2017-06-13 18:53] LABS: ADD UA MICROSCOPIC NO; APPEARANCE,URINE CLEAR (CLEAR); GLUCOSE, URINE (UA) NEGATIVE (NEGATIVE); KETONES,URINE NEGATIVE (NEGATIVE); LEUKOCYTE ESTERASE ,URINE NEGATIVE (NEGATIVE); OCCULT BLOOD,URINE NEGATIVE (NEGATIVE); PH,URINE 6.5 (5.0-8.0); PROTEIN,URINE NEGATIVE (NEGATIVE)
[2017-06-13 20:31] VITALS: BP 112/64
== END 2017-06-13 20:33 | disposition home or self-care (01) ==
LOC: EMS 14:56
DX: A08.4 Viral intestinal infection, unspecified (principal); I48.91 Unspecified atrial fibrillation; J44.9 Chronic obstructive pulmonary disease, unspecified; E78.00 Pure hypercholesterolemia, unspecified; I10 Essential (primary) hypertension; Z87.891 Personal history of nicotine dependence; Z88.0 Allergy status to penicillin; Z88.6 Allergy status to analgesic agent; Z88.8 Allergy status to other drugs, medicaments and biological substances; Z88.5 Allergy status to narcotic agent
CPT/HCPCS: 93005; 99285

== ENCOUNTER → 2017-06-30 | Outpatient (CLI) | payer MEDICARE, OTHER ==
[~2017-06-30] VITALS: Ht 157.5 cm; Wt 57.0 kg
[2017-06-30 14:01] VITALS: BP 127/60
== END | disposition home or self-care (01) ==
LOC: SRCNTR 13:59
PROVIDERS: ATTEND Internal Medicine Cardiovascular Disease
DX: I10 Essential (primary) hypertension (principal); J44.9 Chronic obstructive pulmonary disease, unspecified; I48.2 Chronic atrial fibrillation; E78.5 Hyperlipidemia, unspecified; Z79.01 Long term (current) use of anticoagulants; Z88.0 Allergy status to penicillin
CPT/HCPCS: G0463

== ENCOUNTER 2017-07-03 09:14 | Emergency (ER) | payer MEDICARE, OTHER ==
[~2017-07-03] VITALS: Ht 157.5 cm; Wt 61.4 kg
[2017-07-03 10:40] LABS: EOSINOPHILS % (AUTO) 0.06 % (1.0-6.0); HEMOGLOBIN 14.3 g/dL (12.0-16.0); LYMPHOCYTES # (AUTO) 0.5 K/uL (1.0-4.8); LYMPHOCYTES % (AUTO) 6.9 % (22.0-44.0); MEAN CORPUSCULAR HEMOGLOBIN 29.2 pg (26.0-34.0); MEAN CORPUSCULAR HGB CONC 32.5 G/dL (31.0-37.0); MEAN CORPUSCULAR VOLUME 90 fL (80-100); MONOCYTES % (AUTO) 13.3 % (2.0-9.0); NEUTROPHILS % (AUTO) 79.8 % (40.0-70.0); PLATELET COUNT (AUTO) 193 K/uL (150-450)
[2017-07-03 10:58] LABS: ANION GAP 8 mmol/L (8-16); CALCIUM, TOTAL 8.7 mg/dL (8.8-10.5); CARBON DIOXIDE 33 mmol/L (22-29); CHLORIDE 92 mmol/L (98-107); CREATININE 0.87 mg/dL (0.60-1.30); GLOMERULAR FILTR. RATE CALC > 60 mL/min (>60); GLUCOSE,RANDOM 123 mg/dL (70-110); POTASSIUM 3.6 mmol/L (3.5-5.1); SODIUM SERUM 133 mmol/L (136-145); UREA NITROGEN, BLOOD 17 mg/dL (7-18)
[2017-07-03 11:01] LABS: ALANINE AMINOTRANSFERASE 114 U/L (12-78); ALKALINE PHOSPHATASE 201 U/L (46-116); ASPARTATE AMINOTRANSFERASE 107 U/L (15-37); BILIRUBIN,TOTAL 0.6 mg/dL (0.1-1.0); TOTAL PROTEIN, SERUM 8.4 g/dL (6.4-8.2)
[2017-07-03] MEDS ORDERED: PredniSONE 20 MG TABLET PO ONE (11:15)
[2017-07-03] MEDS ORDERED: IPRATROPIUM BROMIDE 0.5 MG/2.5 ML NEB SOLUTION NEB ONE (11:15)
[2017-07-03] MEDS ORDERED: ALBUTEROL SULFATE 5 MG/ML 20 ML NEB SOLN [BULK] NEB ONE (11:15)
[2017-07-03 11:21] LABS: INFLUENZA TYPE A NEGATIVE FOR TYPE A (NEGATIVE); INFLUENZA TYPE B NEGATIVE FOR TYPE B (NEGATIVE)
[2017-07-03] MEDS ORDERED: ALBUTEROL SULFATE HFA 90 MCG/PUFF 8 GM INHALER IH ONE (13:00)
[2017-07-03 13:12] VITALS: BP 110/56
== END 2017-07-03 13:33 | disposition home or self-care (01) ==
LOC: EMS 09:16
DX: J44.1 Chronic obstructive pulmonary disease with (acute) exacerbation (principal); R74.0 Nonspecific elevation of levels of transaminase and lactic acid dehydrogenase [LDH]; I10 Essential (primary) hypertension; E78.00 Pure hypercholesterolemia, unspecified; I48.91 Unspecified atrial fibrillation; Z87.891 Personal history of nicotine dependence; Z88.0 Allergy status to penicillin; Z88.5 Allergy status to narcotic agent; Z88.8 Allergy status to other drugs, medicaments and biological substances
CPT/HCPCS: 36415; 71045; 80053; 85025; 87040; 87804; 93005; 94640; 99285; J7512; J7611; J3535

== ENCOUNTER → 2017-07-11 | Outpatient (CLI) | payer MEDICARE, OTHER ==
[~2017-07-11] MED LIST changes: -ESOM40CA54 PO
== END | disposition home or self-care (01) ==
LOC: RADPV 07:07
PROVIDERS: ATTEND Nurse Practitioner
DX: K76.0 Fatty (change of) liver, not elsewhere classified (principal); N28.1 Cyst of kidney, acquired; Z90.49 Acquired absence of other specified parts of digestive tract
CPT/HCPCS: 76700

== ENCOUNTER 2017-08-12 19:34 | Emergency (ER) | payer MEDICARE, OTHER ==
[~2017-08-12] VITALS: Ht 154.9 cm; Wt 59.1 kg
[~2017-08-12 19:34] MED LIST changes: +DIGO-44 PO; -DIGO125T PO
[2017-08-12] MEDS ORDERED: ACETAMINOPHEN 325 MG TABLET PO ONE (20:30)
[2017-08-12] MEDS ORDERED: ALBUTEROL SULFATE 2.5 MG/0.5 ML NEB SOLUTION NEB ONE (20:30)
[2017-08-12] MEDS ORDERED: 0.9% SODIUM CHLORIDE 5 ML NEB SOLUTION NEB ONE (20:34)
[2017-08-12 20:47] LABS: BASOPHILS % (AUTO) 0.6 % (0.0-2.0); EOSINOPHILS % (AUTO) 0.5 % (1.0-6.0); HEMOGLOBIN 13.9 g/dL (12.0-16.0); LYMPHOCYTES # (AUTO) 0.8 K/uL (1.0-4.8); LYMPHOCYTES % (AUTO) 7.2 % (22.0-44.0); MEAN CORPUSCULAR HEMOGLOBIN 29.1 pg (26.0-34.0); MEAN CORPUSCULAR HGB CONC 33.2 G/dL (31.0-37.0); MEAN CORPUSCULAR VOLUME 88 fL (80-100); MONOCYTES # (AUTO) 1.1 K/uL (0.1-1.0); MONOCYTES % (AUTO) 10.2 % (2.0-9.0); NEUTROPHILS # (AUTO) 8.5 K/uL (1.8-7.7); NEUTROPHILS % (AUTO) 81.5 % (40.0-70.0); PLATELET COUNT (AUTO) 201 K/uL (150-450); RED CELL DISTRIBUTION WIDTH 14.2 % (11.5-14.5)
[2017-08-12 21:05] LABS: ANION GAP 8 mmol/L (8-16); CALCIUM, TOTAL 9.3 mg/dL (8.8-10.5); CARBON DIOXIDE 33 mmol/L (22-29); CHLORIDE 98 mmol/L (98-107); CREATININE 0.69 mg/dL (0.60-1.30); GLOMERULAR FILTR. RATE CALC > 60 mL/min (>60); GLUCOSE,RANDOM 112 mg/dL (70-110); POTASSIUM 3.5 mmol/L (3.5-5.1); SODIUM SERUM 139 mmol/L (136-145); UREA NITROGEN, BLOOD 12 mg/dL (7-18)
[2017-08-12 21:12] LABS: ALANINE AMINOTRANSFERASE 55 U/L (12-78); ALBUMIN 4.2 g/dL (3.4-5.0); ALKALINE PHOSPHATASE 157 U/L (46-116); ASPARTATE AMINOTRANSFERASE 24 U/L (15-37); BILIRUBIN,TOTAL 0.5 mg/dL (0.1-1.0); DIGOXIN 0.74 ng/mL (0.90-2.00)
[2017-08-12 21:58] LABS: INFLUENZA TYPE A NEGATIVE FOR TYPE A (NEGATIVE); INFLUENZA TYPE B NEGATIVE FOR TYPE B (NEGATIVE)
[2017-08-12] MEDS ORDERED: AZITHROMYCIN 250 MG TABLET PO ONE (22:30)
[2017-08-12 23:38] VITALS: BP 128/79
== END 2017-08-12 23:41 | disposition home or self-care (01) ==
LOC: EMS 19:35
DX: J44.1 Chronic obstructive pulmonary disease with (acute) exacerbation (principal); J02.9 Acute pharyngitis, unspecified; R51 Headache; I48.91 Unspecified atrial fibrillation; E78.00 Pure hypercholesterolemia, unspecified; I10 Essential (primary) hypertension; Z87.891 Personal history of nicotine dependence; Z88.5 Allergy status to narcotic agent; Z88.0 Allergy status to penicillin; Z88.8 Allergy status to other drugs, medicaments and biological substances
CPT/HCPCS: 71046; 87804; 93005; 94640; 99285

== ENCOUNTER → 2017-08-17 | Outpatient (CLI) | payer MEDICARE, OTHER ==
[~2017-08-17] VITALS: Ht 157.5 cm; Wt 57.0 kg
[~2017-08-17] MED LIST changes: +ALBU8HFA4 IH; +TIOT4MIS3 IH
[2017-08-17 12:37] VITALS: BP 126/58
== END | disposition home or self-care (01) ==
LOC: SRCNTR 12:24
PROVIDERS: ATTEND Internal Medicine Critical Care Medicine
DX: G47.33 Obstructive sleep apnea (adult) (pediatric) (principal); C34.90 Malignant neoplasm of unspecified part of unspecified bronchus or lung; E78.2 Mixed hyperlipidemia; I10 Essential (primary) hypertension; J44.9 Chronic obstructive pulmonary disease, unspecified; I25.10 Atherosclerotic heart disease of native coronary artery without angina pectoris; T78.3XXA Angioneurotic edema, initial encounter; Z79.01 Long term (current) use of anticoagulants; Z83.3 Family history of diabetes mellitus; Z85.038 Personal history of other malignant neoplasm of large intestine; Z88.8 Allergy status to other drugs, medicaments and biological substances; Z88.0 Allergy status to penicillin; Z90.2 Acquired absence of lung [part of]
CPT/HCPCS: G0463

== ENCOUNTER → 2017-08-30 | Outpatient (CLI) | payer MEDICARE, OTHER ==
[~2017-08-30] VITALS: Ht 157.5 cm; Wt 56.0 kg
[~2017-08-30] MED LIST changes: -DICY20 PO
[2017-08-30 14:31] VITALS: BP 128/50
== END | disposition home or self-care (01) ==
LOC: SRCNTR 13:54
PROVIDERS: ATTEND Internal Medicine Cardiovascular Disease
DX: I10 Essential (primary) hypertension (principal); E78.5 Hyperlipidemia, unspecified; I48.2 Chronic atrial fibrillation; J44.9 Chronic obstructive pulmonary disease, unspecified; Z79.01 Long term (current) use of anticoagulants; Z88.0 Allergy status to penicillin
CPT/HCPCS: G0463

== ENCOUNTER → 2017-09-13 | Outpatient (CLI) | payer MEDICARE, OTHER ==
[~2017-09-13] VITALS: Ht 157.5 cm; Wt 56.5 kg
[~2017-09-13] MED LIST changes: +ASCO-360 PO
[2017-09-13 11:53] VITALS: BP 141/71
== END | disposition home or self-care (01) ==
LOC: SRCNTR 11:49
PROVIDERS: ATTEND Internal Medicine Critical Care Medicine
DX: G47.33 Obstructive sleep apnea (adult) (pediatric) (principal); J44.9 Chronic obstructive pulmonary disease, unspecified; I10 Essential (primary) hypertension; E78.2 Mixed hyperlipidemia; I25.10 Atherosclerotic heart disease of native coronary artery without angina pectoris; J32.9 Chronic sinusitis, unspecified; C34.90 Malignant neoplasm of unspecified part of unspecified bronchus or lung; Z79.01 Long term (current) use of anticoagulants
CPT/HCPCS: G0463

== ENCOUNTER → 2017-11-01 | Outpatient (CLI) | payer MEDICARE, OTHER ==
[~2017-11-01] VITALS: Ht 157.5 cm; Wt 56.0 kg
[2017-11-01 14:40] VITALS: BP 109/56
== END | disposition home or self-care (01) ==
LOC: SRCNTR 14:33
PROVIDERS: ATTEND Internal Medicine Cardiovascular Disease
DX: I10 Essential (primary) hypertension (principal); E78.5 Hyperlipidemia, unspecified; I48.2 Chronic atrial fibrillation; J44.9 Chronic obstructive pulmonary disease, unspecified; Z79.01 Long term (current) use of anticoagulants; Z88.0 Allergy status to penicillin
CPT/HCPCS: G0463

== ENCOUNTER → 2017-11-15 | Outpatient (CLI) | payer MEDICARE, OTHER | END | disposition home or self-care (01) | LOC: RADPV 07:05 | PROVIDERS: ATTEND Internal Medicine Critical Care Medicine | DX: I70.0 Atherosclerosis of aorta (principal); I51.7 Cardiomegaly; J44.1 Chronic obstructive pulmonary disease with (acute) exacerbation | CPT/HCPCS: 71046 ==

== ENCOUNTER → 2017-11-24 | Outpatient (CLI) | payer MEDICARE, OTHER ==
[~2017-11-24] VITALS: Ht 157.5 cm; Wt 56.0 kg
[2017-11-24 14:43] VITALS: BP 143/59
== END | disposition home or self-care (01) ==
LOC: SRCNTR 14:05
PROVIDERS: ATTEND Internal Medicine Critical Care Medicine
DX: J44.9 Chronic obstructive pulmonary disease, unspecified (principal); I10 Essential (primary) hypertension; E78.2 Mixed hyperlipidemia; G47.33 Obstructive sleep apnea (adult) (pediatric); J32.9 Chronic sinusitis, unspecified; C34.90 Malignant neoplasm of unspecified part of unspecified bronchus or lung
CPT/HCPCS: G0463

== ENCOUNTER → 2018-01-03 | Outpatient (CLI) | payer MEDICARE, OTHER ==
[~2018-01-03] VITALS: Ht 157.5 cm; Wt 57.5 kg
[2018-01-03 14:18] VITALS: BP 120/51
== END | disposition home or self-care (01) ==
LOC: SRCNTR 14:14
PROVIDERS: ATTEND Internal Medicine Cardiovascular Disease
DX: I10 Essential (primary) hypertension (principal); J44.9 Chronic obstructive pulmonary disease, unspecified; I48.91 Unspecified atrial fibrillation; E78.5 Hyperlipidemia, unspecified
CPT/HCPCS: G0463

== ENCOUNTER → 2018-03-21 | Outpatient (CLI) | payer MEDICARE, OTHER ==
[~2018-03-21] VITALS: Ht 157.5 cm; Wt 57.0 kg
[2018-03-21 14:09] VITALS: BP 126/66
== END | disposition home or self-care (01) ==
LOC: SRCNTR 14:01
PROVIDERS: ATTEND Internal Medicine Cardiovascular Disease
DX: I48.2 Chronic atrial fibrillation (principal); I10 Essential (primary) hypertension; J44.9 Chronic obstructive pulmonary disease, unspecified; E78.5 Hyperlipidemia, unspecified
CPT/HCPCS: G0463

== ENCOUNTER → 2018-06-08 | Outpatient (CLI) | payer MEDICARE, OTHER ==
[~2018-06-08] VITALS: Ht 157.5 cm; Wt 56.5 kg
[2018-06-08 14:05] VITALS: BP 108/60
== END | disposition home or self-care (01) ==
LOC: SRCNTR 14:04
PROVIDERS: ATTEND Internal Medicine Cardiovascular Disease
DX: I48.2 Chronic atrial fibrillation (principal); I10 Essential (primary) hypertension; E78.5 Hyperlipidemia, unspecified; J44.9 Chronic obstructive pulmonary disease, unspecified
CPT/HCPCS: G0463

== ENCOUNTER → 2018-06-14 | Outpatient (CLI) | payer MEDICARE, OTHER ==
[~2018-06-14] VITALS: Ht 157.5 cm; Wt 56.0 kg
[2018-06-14 13:07] VITALS: BP 104/50
== END | disposition home or self-care (01) ==
LOC: SRCNTR 12:59
PROVIDERS: ATTEND Internal Medicine Critical Care Medicine
DX: G47.33 Obstructive sleep apnea (adult) (pediatric) (principal); J44.9 Chronic obstructive pulmonary disease, unspecified; C34.90 Malignant neoplasm of unspecified part of unspecified bronchus or lung; E78.2 Mixed hyperlipidemia; I10 Essential (primary) hypertension; J32.9 Chronic sinusitis, unspecified
CPT/HCPCS: G0463

== ENCOUNTER → 2018-08-29 | Outpatient (CLI) | payer MEDICARE, OTHER ==
[~2018-08-29] VITALS: Ht 157.5 cm; Wt 58.0 kg
[2018-08-29 14:02] VITALS: BP 125/62
== END | disposition home or self-care (01) ==
LOC: SRCNTR 14:02
PROVIDERS: ATTEND Internal Medicine Cardiovascular Disease
DX: E78.5 Hyperlipidemia, unspecified (principal); I48.91 Unspecified atrial fibrillation; I10 Essential (primary) hypertension; J44.9 Chronic obstructive pulmonary disease, unspecified
CPT/HCPCS: G0463

== ENCOUNTER → 2018-09-11 | Outpatient (CLI) | payer MEDICARE, OTHER | END | disposition home or self-care (01) | LOC: RADPV 10:58 | PROVIDERS: ATTEND Internal Medicine Critical Care Medicine | DX: I70.0 Atherosclerosis of aorta (principal); I51.7 Cardiomegaly; J44.1 Chronic obstructive pulmonary disease with (acute) exacerbation; Z98.890 Other specified postprocedural states ==

== ENCOUNTER → 2018-09-27 | Outpatient (CLI) | payer MEDICARE, OTHER ==
[~2018-09-27] VITALS: Ht 157.5 cm; Wt 56.5 kg
[~2018-09-27] MED LIST changes: +SIME80 PO
[2018-09-27 13:44] VITALS: BP 134/79
== END | disposition home or self-care (01) ==
LOC: SRCNTR 13:20
PROVIDERS: ATTEND Internal Medicine Critical Care Medicine
DX: C34.90 Malignant neoplasm of unspecified part of unspecified bronchus or lung (principal); E78.2 Mixed hyperlipidemia; I10 Essential (primary) hypertension; J44.9 Chronic obstructive pulmonary disease, unspecified; G47.33 Obstructive sleep apnea (adult) (pediatric); J32.9 Chronic sinusitis, unspecified
CPT/HCPCS: G0463

== ENCOUNTER → 2018-10-25 | Outpatient (CLI) | payer MEDICARE, OTHER ==
[~2018-10-25] VITALS: Ht 157.5 cm; Wt 56.0 kg
[2018-10-25 11:49] VITALS: BP 108/77
== END | disposition home or self-care (01) ==
LOC: SRCNTR 11:24
PROVIDERS: ATTEND Internal Medicine Cardiovascular Disease
DX: I10 Essential (primary) hypertension (principal); I48.91 Unspecified atrial fibrillation; J44.9 Chronic obstructive pulmonary disease, unspecified
CPT/HCPCS: G0463